=== PATIENT | female | born 1990 | race Caucasian/White ===

== ENCOUNTER 2018-10-20 19:51 | Outpatient (CLI) | payer OTHER ==
[2018-10-20 20:33] LABS: ADD UMIC YES; UR AMORPHOUS CRYSTAL FEW /HPF (NONE SEEN); UR ASCORBIC ACID NEGATIVE (NEGATIVE); UR BILIRUBIN (Dip) NEGATIVE (NEGATIVE); UR BLOOD (Dip) NEGATIVE (NEGATIVE); UR CLARITY CLOUDY (CLEAR); UR COLOR YELLOW (YELLOW); UR GLUCOSE (Dip) NEGATIVE (NEGATIVE); UR KETONES (Dip) NEGATIVE (NEGATIVE); UR LEUKOCYTE ESTERASE (Dip) 3+ Leu/ul (NEGATIVE); UR MUCUS FEW /HPF (NONE SEEN); UR NITRITE (Dip) NEGATIVE (NEGATIVE); UR RBC 0 /HPF (0-5); UR SPECIFIC GRAVITY (Dip) 1.024 (1.003-1.030); UR SQUAMOUS EPITHELIAL CELL MODERATE /HPF (FEW); UR TOTAL PROTEIN (Dip) NEGATIVE (NEGATIVE); UR UROBILINOGEN (Dip) 2+ mg/dL (NEGATIVE); UR WBC 9 /HPF (0-5)
== END 2018-10-20 22:00 | disposition home or self-care (01) ==
LOC: OBT 19:51 → L-D 19:54 → OBT 22:00
DX: O26.892 Other specified pregnancy related conditions, second trimester (principal); Z3A.23 23 weeks gestation of pregnancy; M06.9 Rheumatoid arthritis, unspecified
CPT/HCPCS: 81001; 87086

== ENCOUNTER 2018-10-20 22:04 | Emergency (ER) | payer OTHER ==
[2018-10-20] MEDS: ACETAMINOPHEN 500 MG TAB PO (23:19)
== END 2018-10-20 23:34 | disposition home or self-care (01) ==
LOC: FTE 22:04
DX: M06.9 Rheumatoid arthritis, unspecified (principal)
CPT/HCPCS: 99282

== ENCOUNTER 2019-01-28 10:12 | Inpatient (IN) | payer OTHER ==
[2019-01-28 11:03] LABS: RUPTURE FETAL MEMBRANES POSITIVE (NEGATIVE)
[2019-01-28 11:30] LABS: ADD MAN DIFF? NO
[2019-01-28] MEDS ORDERED: IBUPROFEN 600 MG TAB PO (11:30)
[2019-01-28] MEDS ORDERED: CARBOPROST 250 MCG INJ IM ×2 (11:30→18:30)
[2019-01-28] MEDS ORDERED: MISOPROSTOL 200 MCG TAB PR ×2 (11:30→18:30)
[2019-01-28] MEDS ORDERED: OXYTOCIN 30 UNITS/LR 500 ML IV ×3 (11:30→18:30)
[2019-01-28] MEDS ORDERED: METHYLERGONOVINE 0.2 MG INJ IM ×2 (11:30→18:30)
[2019-01-28 11:34] LABS: ADD UMIC NO; BASOPHIL # 0.1 10^3/ul (0.0-0.1); BASOPHILS % 0.4 % (0.0-2.0); EOSINOPHILS # 0.1 10^3/ul (0.0-0.5); EOSINOPHILS % 0.4 % (0.0-7.0); HEMATOCRIT 33.9 % (37.0-47.0); HEMOGLOBIN 10.4 g/dl (12.0-16.0); LYMPHOCYTES # 3.3 10^3/ul (0.8-2.9); MEAN CORPUSCULAR HEMOGLOBIN 25.3 pg (29.0-33.0); MEAN CORPUSCULAR HGB CONC 30.7 g/dl (32.0-37.0); MEAN CORPUSCULAR VOLUME 82.5 fl (82.0-101.0); MEAN PLATELET VOLUME 10.1 fl (7.4-10.4); MONOCYTES % 7.4 % (0.0-11.0); NEUTROPHIL # 9.2 10^3/ul (1.6-7.5); NEUTROPHILS % 67.2 % (39.0-77.0); PLATELET COUNT 346 10^3/UL (140-415); RED BLOOD COUNT 4.11 10^6/ul (4.20-5.40); RED CELL DISTRIBUTION WIDTH 19.4 % (11.5-14.5); UR ASCORBIC ACID NEGATIVE (NEGATIVE); UR BILIRUBIN (Dip) NEGATIVE (NEGATIVE); UR BLOOD (Dip) NEGATIVE (NEGATIVE); UR CLARITY CLEAR (CLEAR); UR COLOR YELLOW (YELLOW); UR GLUCOSE (Dip) NEGATIVE (NEGATIVE); UR KETONES (Dip) NEGATIVE (NEGATIVE); UR LEUKOCYTE ESTERASE (Dip) NEGATIVE Leu/ul (NEGATIVE); UR NITRITE (Dip) NEGATIVE (NEGATIVE); UR SPECIFIC GRAVITY (Dip) 1.016 (1.003-1.030); UR TOTAL PROTEIN (Dip) NEGATIVE (NEGATIVE); UR UROBILINOGEN (Dip) NEGATIVE (NEGATIVE)
[2019-01-28 11:34] LABS: WHITE BLOOD COUNT 13.7 10^3/ul (4.8-10.8)
[2019-01-28] MEDS: LACTATED RINGER'S 1,000 ML IV (11:38)
[2019-01-28] MEDS: OXYTOCIN 30 UNITS/LR 500 ML IV ×2 (11:57→16:53)
[2019-01-28 12:12] LABS: ALANINE AMINOTRANSFERASE 7 IU/L (13-69); ALBUMIN 3.5 g/dl (3.3-4.9); ALBUMIN/GLOBULIN RATIO 0.94; ALKALINE PHOSPHATASE 110 IU/L (42-121); ANION GAP 11 (5-13); ASPARTATE AMINO TRANSFERASE 20 IU/L (15-46); BILIRUBIN,INDIRECT 0.3 mg/dl (0-1.1); BILIRUBIN,TOTAL 0.3 mg/dl (0.2-1.3); BLOOD UREA NITROGEN 14 mg/dl (7-20); CALCIUM 9.1 mg/dl (8.4-10.2); CARBON DIOXIDE 24 mmol/L (21-31); CHLORIDE 105 mmol/L (97-110); CREATININE 0.45 mg/dl (0.44-1.00); Estimated GFR > 60 mL/min (>60); GLUCOSE 72 mg/dl (70-220); POTASSIUM 3.8 mmol/L (3.5-5.1); SODIUM 140 mmol/L (135-144); TOTAL PROTEIN 7.2 g/dl (6.1-8.1); URIC ACID 5.3 mg/dl (3.1-7.9)
[2019-01-28 12:19] LABS: INR 0.96; PARTIAL THROMBOPLASTIN TIME 28.6 Sec (23.0-35.0); PROTIME 12.9 Sec (11.9-14.9)
[2019-01-28 12:26] LABS: HEPATITIS B SURFACE ANTIGEN NEGATIVE (NEGATIVE)
[2019-01-28] MEDS: predniSONE 5 MG TAB PO (13:22)
[2019-01-28] MEDS: BUTORPHANOL 2 MG INJ IV (15:04)
[2019-01-28] MEDS: LIDOCAINE 1% (MPF) 30 ML INJ INJ (16:34)
[2019-01-28] MEDS: IBUPROFEN 600 MG TAB PO (18:30)
[2019-01-28] MEDS ORDERED: NACL 0.9% 3 ML SYG IV (18:30)
[2019-01-28] MEDS ORDERED: ACETAMINOPHEN 325 MG TAB PO (18:30)
[2019-01-28] MEDS ORDERED: ONDANSETRON 4 MG INJ IV (18:30)
[2019-01-28] MEDS ORDERED: DIPHENHYDRAMINE 25 MG CAP PO (18:30)
[2019-01-28] MEDS ORDERED: ZOLPIDEM 5 MG TAB PO (18:30)
[2019-01-28] MEDS: METHYLPREDNISOLONE 125 MG INJ IV (20:03)
[2019-01-28 20:42] LABS: RAPID PLASMA REAGIN NONREACTIVE (NR)
[2019-01-28] MEDS: SENNA/DOCUSATE NA (8.6MG/50MG) TAB PO (20:57)
[2019-01-28] MEDS: HYDROCODONE/APAP (5/325) TAB PO (20:57)
[2019-01-28] MEDS: WITCH HAZEL/GLYCERIN PAD PR (20:57)
[2019-01-28] MEDS: LANOLIN HPA 1 PKT TOP (20:58)
[2019-01-28] MEDS ORDERED: predniSONE 10 MG TAB PO (21:00)
[2019-01-29] MEDS: DIBUCAINE 1% 30 GM OINT TOP (00:19)
[2019-01-29] MEDS: BENZOCAINE 20% 56 ML SPRAY TOP (00:20)
[2019-01-29] MEDS: IBUPROFEN 600 MG TAB PO ×4 (00:20→17:55)
[2019-01-29 08:20] LABS: ADD MAN DIFF? NO
[2019-01-29 08:24] LABS: WHITE BLOOD COUNT 12.6 10^3/ul (4.8-10.8)
[2019-01-29 08:24] LABS: BASOPHILS % 0.1 % (0.0-2.0); HEMATOCRIT 30.7 % (37.0-47.0); HEMOGLOBIN 9.5 g/dl (12.0-16.0); MEAN CORPUSCULAR HEMOGLOBIN 25.3 pg (29.0-33.0); MEAN CORPUSCULAR HGB CONC 30.9 g/dl (32.0-37.0); MEAN CORPUSCULAR VOLUME 81.9 fl (82.0-101.0); MEAN PLATELET VOLUME 10.6 fl (7.4-10.4); MONOCYTE # 0.3 10^3/ul (0.3-0.9); MONOCYTES % 2.7 % (0.0-11.0); NEUTROPHIL # 10.1 10^3/ul (1.6-7.5); NEUTROPHILS % 80.5 % (39.0-77.0); PLATELET COUNT 347 10^3/UL (140-415); RED BLOOD COUNT 3.75 10^6/ul (4.20-5.40); RED CELL DISTRIBUTION WIDTH 19.6 % (11.5-14.5)
[2019-01-29] MEDS: OXYTOCIN 30 UNITS/LR 500 ML IV (10:00)
[2019-01-29] MEDS: SENNA/DOCUSATE NA (8.6MG/50MG) TAB PO ×2 (11:11→21:44)
[2019-01-29] MEDS: OXYCODONE/ASPIRIN (4.88/325) TAB PO (11:11)
[2019-01-29] MEDS: predniSONE 5 MG TAB PO (12:29)
[2019-01-29] MEDS: predniSONE 10 MG TAB PO (22:39)
[2019-01-30] MEDS: IBUPROFEN 600 MG TAB PO ×3 (00:02→12:10)
[2019-01-30] MEDS: predniSONE 5 MG TAB PO (09:00)
[2019-01-30] MEDS: SENNA/DOCUSATE NA (8.6MG/50MG) TAB PO (09:01)
[2019-01-30] MEDS: MEASLES,MUMPS,RUBELLA VACCINE INJ SC* (09:28)
[2019-01-30] MEDS: VARICELLA VACCINE LIVE/PF 1,350 UNIT/0.5 ML ML SC* (09:28)
[2019-01-30] MEDS: DIPHTH/TET/ACEL PERTUSS (ADULT) 0.5 ML VIAL IM* (11:15)
== END 2019-01-30 14:05 | disposition home or self-care (01) | DRG 807 ==
LOC: OBT 10:12 → L-D 10:12 → OBT 11:00 → L-D 11:00 → PP1 18:24
PROVIDERS: Obstetrics & Gynecology Obstetrics
PROC: 10E0XZZ Delivery of Products of Conception, External Approach (ICD-10-PCS; principal; 2019-01-28)
PROC: 0HQ9XZZ Repair Perineum Skin, External Approach (ICD-10-PCS; 2019-01-28)
PROC: 3E033VJ Introduction of Other Hormone into Peripheral Vein, Percutaneous Approach (ICD-10-PCS; 2019-01-28)
DX: O70.0 First degree perineal laceration during delivery (principal); Z37.0 Single live birth; Z3A.37 37 weeks gestation of pregnancy
CPT/HCPCS: 80053; 81003; 84112; 84560; 85025; 85384; 85610; 85730; 86592; 86850; 86900; 86901; 87340; 90715; 90716